=== PATIENT | female | born 1955 | race Asian ===

== ENCOUNTER 2017-04-17 06:53 | Day surgery (SDC) | payer OTHER ==
[~2017-04-17 06:53] MED LIST: CYCLOPENTOLATE 1% OPHTH DROPS 2 ML ONE; KETOROLAC 0.45% OPHTH DROPS ONE; PHENYLEPHRINE 2.5% OPHTH 2 ML DROPS ONE; PROPARACAINE 0.5% OPHTH DROPS 15 ML ONE
[2017-04-17] MEDS ORDERED: LACTATED RINGERS 500 ML IV ONE (07:00)
[2017-04-17] MEDS ORDERED: CYCLOPENTOLATE 1% OPHTH DROPS 2 ML OPTH ONE (07:15)
[2017-04-17] MEDS ORDERED: PROPARACAINE 0.5% OPHTH DROPS 15 ML OPTH ONE ×2 (07:15→08:14)
[2017-04-17] MEDS ORDERED: KETOROLAC 0.45% OPHTH DROPS OPTH ONE (07:15)
[2017-04-17] MEDS ORDERED: PHENYLEPHRINE 2.5% OPHTH 2 ML DROPS OPTH ONE (07:15)
[2017-04-17] MEDS ORDERED: TIMOLOL 0.5% OPHTH DROPS OPTH ONE (08:14)
[2017-04-17] MEDS ORDERED: CHONDR SULF/HYALURONATE SYRINGE IO ONE (08:14)
[2017-04-17] MEDS ORDERED: BRIMONIDINE 0.2% OPHTH DROPS 5 ML OPTH ONE (08:14)
[2017-04-17] MEDS ORDERED: EPINEPHrine 1 MG/ML AMP IVP ONE (08:14)
[2017-04-17] MEDS ORDERED: BSS/LIDOCAINE/EPINEPHRINE 1 ML SYRINGE IO ONE ×2 (08:15)
[2017-04-17] MEDS ORDERED: TRIAMCIN/MOXIFLOX/VANCO 1 ML VIAL IO ONE ×2 (08:15)
[2017-04-17] MEDS ORDERED: MIDAZOLAM 2 MG/2 ML VIAL IVP ONE (08:15)
[2017-04-17 08:59] VITALS: BP 124/67
--- NOTE | 2017-04-18 03:49 | OPERATIVE REPORT ---
DATE OF SURGERY: 04/17/2017 00:00:00 PREOPERATIVE DIAGNOSIS: Visually significant cataract right eye. This was her first cataract surgery. POSTOPERATIVE DIAGNOSIS: Visually significant cataract right eye. This was her first cataract surgery. NAME OF PROCEDURE: Phacoemulsification posterior chamber intraocular lens implant, right eye. SURGEON: Marshall Ferrer M.D. ANESTHESIA: Monitored anesthesia care. COMPLICATIONS: None. OPERATIVE INDICATIONS: This is a 61-year-old woman with progressive vision loss in the right eye due to 2+ nuclear sclerotic and 3+ cortical cataract. Best corrected visual acuity was 20/50 with glare to 20/200 in the right eye. INDICATIONS FOR SURGERY: Overall decrease in vision, difficulty seeing words on a computer screen, difficulty reading, difficulty seeing words and closed captions on TV. Difficulty seeing street signs, difficulty driving in low light or at night, difficulty driving with glare or bright lights in any situation. Decreased acuity with firearms and just generally blurry, foggy vision. She was consented at length concerning risks and benefits of cataract surgery after which she expressed a desire to proceed with surgery. OPERATIVE PROCEDURE: The patient was taken into OR #2 and placed under monitored anesthesia care. A surgical timeout was conducted confirming correct patient, correct procedure and correct surgical site. She was placed under the LenSx laser and her eye docked with a laser interface. Laser performed a capsulotomy and lens softening, phaco-wounds and ocular keratotomy incisions. She was then moved to the operating microscope, given topical anesthesia and prepped and draped in the usual sterile fashion. The eye was entered at the 12 and 9 o'clock positions. Intracameral Shugarcaine was injected into the anterior chamber followed by Viscoat. Capsulorhexis flap created by the LenSx laser was removed from the anterior chamber. Nucleus was hydrodissected and phacoemulsified. The cortex was evacuated using automated and infusion aspiration. Provisc was injected in the capsular bag and a 19.0 Diopter intraocular lens inserted into the bag. Approximately 0.7 mL of a mixture of triamcinolone, moxifloxacin, vancomycin was injected in the subconjunctival and superior quadrant for infection and inflammation prophylaxis. I/A was used to evacuate the viscoelastic materials. The eye was inflated to a physiologic pressure using balanced salt solution but the wound was found to continually leak therefore a 10-0 Nylon suture was placed across the wound and buried and the eye was able maintain its watertight integrity. The patient was taken from the operating room in good condition and given postoperative instructions. JOB #: [id number] EXT JOB #:[id number] MTDD
== END 2017-04-17 06:54 | disposition home or self-care (01) ==
LOC: SDS 06:53
PROVIDERS: ATTEND Ophthalmology
PROC: 08RJ3JZ Replacement of Right Lens with Synthetic Substitute, Percutaneous Approach (ICD-10-PCS; principal; 2017-04-17 08:00)
DX: H25.811 Combined forms of age-related cataract, right eye (principal); I10 Essential (primary) hypertension; K21.9 Gastro-esophageal reflux disease without esophagitis; E78.00 Pure hypercholesterolemia, unspecified
CPT/HCPCS: 66984; A9270; J3490; V2632

== ENCOUNTER 2018-08-03 14:40 | Outpatient (CLI) | payer OTHER ==
--- NOTE | 2018-08-03 17:59 | MRI Report ---
Reason: PAIN IN LEFT FOOT Procedure Date: 08/03/2018 Accession Number: [id number] / [id number] Procedure: MRI - Foot LT W/O CPT Code: FULL RESULT: EXAM: LEFT MIDFOOT MRI WITHOUT CONTRAST EXAM DATE: 08/03/2018 03:47 PM. CLINICAL HISTORY: Pain in left foot. COMPARISON: None. TECHNIQUE: Multiplanar, multisequence T1-weighted and fluid-sensitive sequences of the midfoot without contrast. Other: None. FINDINGS: Bones: No fractures or subluxations. No marrow edema. No bone lesions. Articular Cartilage: Unremarkable. Ligaments: The visualized intertarsal, intermetatarsal, and tarsometatarsal ligaments are intact. This includes the Lisfranc ligament. The visualized collateral ligaments are intact. Tendons: The flexor and extensor tendons are unremarkable. Musculature: No edema or fatty atrophy. Other: No effusions. The visualized portion of the tarsal tunnel is unremarkable. No intermetatarsal bursitis. The subcutaneous tissues are unremarkable. The focal area of concern, marked with an MRI marker both over the dorsal and plantar aspect of the midfoot medially shows normal anatomy. No evidence for muscular edema. Subcutaneous soft tissues and skin in this location also is unremarkable. IMPRESSION: 1. Focal area of concern marked with an MRI marker both over the dorsal and plantar aspect of the mid foot shows normal anatomy. No bony abnormalities are identified. No muscular edema. No fluid collections or drainable abscesses. 2. Visualized tendons and tarsometatarsal and intertarsal ligaments appear unremarkable. RADIA MUSCULOSKELETAL RADIOLOGY SECTION
== END 2018-08-03 14:41 | disposition home or self-care (01) ==
LOC: DI 14:40
PROVIDERS: ATTEND Family Medicine
DX: M79.672 Pain in left foot (principal)

== ENCOUNTER 2020-10-09 08:08 | Outpatient (CLI) | payer OTHER ==
--- NOTE | 2020-10-09 09:26 | MRI Report ---
PROCEDURE: Knee RT W/O INDICATIONS: RT KNEE OSTEOARTHRITIS TECHNIQUE: Noncontrast sagittal PD fast spin echo and T2 fast spin echo with fat saturation, sagittal 3-D gradie nt sequence with fat saturation; coronal T1 spin echo and PD fast spin echo with fat saturation, and axial PD fast spin echo with fat saturation through the knee. COMPARISON: None. FINDINGS: Image quality: Excellent. Menisci: There is peripheral displacement of medial meniscus bowing medial collateral ligament. Sugge stion of subtle oblique tear involving posterior horn of medial meniscus is seen extending to inferio r articulating surface. No evidence of focal lateral meniscal tear. The meniscal root ligaments appea r intact. Cruciate ligaments: The anterior and posterior cruciate ligaments appear intact. Medial structures: Low grade MCL sprain is noted. The posterior oblique ligament, semimembranosus ten don insertions, and oblique popliteal ligament, and meniscocapsular junction appear intact. Visualiz ed portions of the pes anserinus tendons appear normal. No abnormal bursal fluid. Lateral structures: The lateral collateral ligament, long and short heads of the biceps femoris tend on appear intact. The popliteus tendon appears normal; the popliteofibular ligament appears intact. The posterosuperior and anteroinferior popliteomeniscal fascicles appear intact. The arcuate and fa bellofibular ligaments appear intact, around the lateral inferior geniculate artery. Iliotibial band appears normal. Anterior structures: The quadriceps and patellar tendons appear intact. Patellar alignment is betty l. No femoral trochlear dysplasia or ventral trochlear prominence. No edema in the infrapatellar fa t pad. Bones and cartilage: There is mild to moderate tricompartmental osteoarthritis and chondromalacia mos t prominent in medial femoral tibial compartment. Small osteochondral lesions in weight-bearing porti on of medial femoral condyle is seen. Low to moderate grade chondromalacia involving apex of patella cartilage is also noted. Joint space: There is small amount of joint fluid, no gross intra-articular loose body. No Mobley?s cyst. Normal appearing synovial plicae are incidentally noted. IMPRESSION: 1. Mild to moderate tricompartmental osteoarthritis most prominent in medial femoral tibial compartme nt. 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 No fracture or dislocation. Small joint effusion. 2. Suggestion of subtle oblique tear involving posterior horn of medial meniscus extending to inferio r articulating surfaces. Peripheral displacement of medial meniscus bowing medial collateral ligament . No focal lateral meniscal tear. 3. Low-grade MCL sprain. Cruciate ligaments are intact. Reviewed by: Edgar Ford MD on 10/09/2020 9:24 AM PST Approved by: Edgar Ford MD on 10/09/2020 9:24 AM PST Station ID: [id number]
== END 2020-10-09 08:09 | disposition home or self-care (01) ==
LOC: DI 08:08
PROVIDERS: ATTEND Family Medicine
DX: M17.11 Unilateral primary osteoarthritis, right knee (principal); M22.41 Chondromalacia patellae, right knee; M25.461 Effusion, right knee; S83.411A Sprain of medial collateral ligament of right knee, initial encounter; R93.6 Abnormal findings on diagnostic imaging of limbs

== ENCOUNTER 2021-08-28 14:22 | Outpatient (CLI) | payer OTHER ==
--- NOTE | 2021-09-04 14:02 | Mammography Report ---
BILATERAL DIGITAL SCREENING MAMMOGRAM 3D/2D: 08/28/2021 CLINICAL: Family history of breast cancer. Routine screening. Comparison is made to exams dated: 03/18/2017 mammogram and 04/04/2016 mammogram - [facility] . The tissue of both breasts is predominantly fatty. No significant masses, calcifications, or other findings are seen in either breast. There has been no significant interval change. IMPRESSION: NEGATIVE There is no mammographic evidence of malignancy. A 1 year screening mammogram is recommended. This exam was interpreted at Station ID: [id number]. NOTE: For mammograms, a report in lay terms will be sent to the patient. Approximately 15% of breast malignancies will not be visualized mammographically. In the management of a palpable breast mass, a negative mammogram must not discourage biopsy of a clinically suspicious lesion. Electronically Signed By: Felipe De Souza acr/penrad:09/03/2021 12:51:19 ACR BI-RADS Category 1: Negative 3341F PARENCHYMAL PATTERN: (F) - The breast(s) demonstrate(s) diffuse fatty replacement. BI-RADS CATEGORY: (1) - 1 RECOMMENDATION: (ANNUAL) - Recommend routine annual screening mammography. [id number] 1 year screening LATERALITY: (B)
== END 2021-08-28 14:23 | disposition home or self-care (01) ==
LOC: DI.N 14:22
DX: Z12.31 Encounter for screening mammogram for malignant neoplasm of breast (principal); Z80.3 Family history of malignant neoplasm of breast

== ENCOUNTER 2022-12-16 13:19 | Outpatient (CLI) | payer MEDICARE, OTHER ==
--- NOTE | 2022-12-17 09:36 | Mammography Report ---
BILATERAL DIGITAL SCREENING MAMMOGRAM 3D/2D: 12/16/2022 CLINICAL: Family history of breast cancer. High risk screening. Routine screening. Comparison is made to exams dated: 08/28/2021 mammogram - [facility], 03/18/2017 [facility], and 04/04/2016 mammogram - [facility]. There are scattered areas of fibroglandular density in both breasts (category b / 25%-50% glandular t issue). No significant masses, calcifications, or other findings are seen in either breast. There has been no significant interval change. IMPRESSION: NEGATIVE There is no mammographic evidence of malignancy. A 1 year screening mammogram is recommended. Based on the Tyrer Cuzick model (a risk assessment model) the patients lifetime risk is 10.2% and he r 10 year risk is 5.2%. According to the ACR, ACS, and NCCN guidelines, an annual breast MRI exam gary ng with mammogram is recommended if the patients lifetime risk is 20% or greater. This exam was interpreted at Station ID: [id number]. NOTE: For mammograms, a report in lay terms will be sent to the patient. Approximately 15% of breast malignancies will not be visualized mammographically. In the management of a palpable breast mass, a negative mammogram must not discourage biopsy of a clinically suspicious lesion. Electronically Signed By: Kumar brewster/gregg:12/16/2022 15:01:01 letter sent: No_Letter ACR BI-RADS Category 1: Negative 3341F PARENCHYMAL PATTERN: (A) - The breast(s) demonstrate(s) scattered fibroglandular densities. BI-RADS CATEGORY: (1) - 1 Mammogram [id number] 1 year screening LATERALITY: (B)
== END 2022-12-16 13:20 | disposition home or self-care (01) ==
LOC: DI.N 13:19
PROVIDERS: ATTEND Student in an Organized Health Care Education/Training Program
DX: Z12.31 Encounter for screening mammogram for malignant neoplasm of breast (principal); Z80.3 Family history of malignant neoplasm of breast